=== PATIENT | male | born 1995 | race Caucasian/White ===

== ENCOUNTER 2016-07-17 18:49 | Emergency (ER) | payer OTHER ==
[~2016-07-17] VITALS: Ht 177.8 cm; Wt 85.2 kg
[2016-07-17 18:53] VITALS: BP 140/84; PULSE 88; TEMP 36.7; O2SAT 97; Ht 177.8 cm; Wt 85.2 kg
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
--- NOTE | 2016-07-17 20:13 | DIAGNOSTIC IMAGING REPORT ---
MAXILLOFACIAL CT WITHOUT CONTRAST CLINICAL HISTORY: Nasal injury. COMPARISON STUDY: Maxillofacial CT July 28, 2014. TECHNIQUE: A maxillofacial CT was performed without IV contrast. Coronal and sagittal reformats were viewed. FINDINGS: There is a minimally displaced acute right nasal bone fracture. There is deformity of the anterior aspect of the nasal septum which is likely old. No additional acute facial fractures are identified. The globes are intact. Orbital floors are intact. Alignment of the temporomandibular joints is anatomic. There is nasal soft tissue swelling. IMPRESSION: 1. Acute minimally displaced right nasal bone fracture. 2. Deformity of the nasal septum which is similar to exam of July 28, 2014. This suggests an old fracture. Electronically signed by: Kaden Hutchison M.D. 07/17/2016 8:11 PM Dictated Date/Time: 07/17/2016 8:06 PM
== END 2016-07-17 20:41 | disposition home or self-care (01) ==
LOC: C.EDB 18:51 → C.EDD 20:41
DX: S02.2XXA Fracture of nasal bones, initial encounter for closed fracture (principal); Y93.71 Activity, boxing; W50.0XXA Accidental hit or strike by another person, initial encounter